=== PATIENT | male | born 1970 | race American Indian/Alaskan Native ===

== ENCOUNTER 2018-06-13 11:37 | Emergency (ER) | payer SELFPAY ==
[2018-06-13 11:50] VITALS: BP 119/66
[2018-06-13] MEDS ORDERED: DELTASONE PO ONE (12:20)
[2018-06-13] MEDS ORDERED: TYLENOL PO ONE (12:20)
--- NOTE | 2018-06-13 12:26 | Emergency Department Report ---
HPI - General Chief Complaint: Extremity Injury, Upper Time Seen by Provider: 06/13/18 12:03 - HPI HPI: She is a 48-year-old male who presents to ED with no prior medical conditions complaining of burning pain 3 days. 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 Patient denies any trauma or injuries. Patient states that he is unable to bend index finger due to pain. He denies fever/chills/nausea vomiting. ED Past Medical Hx - Past Medical History Previous Medical History?: No - Surgical History Past Surgical History?: No - Social History Smoking Status: Current Some Day Smoker Substance Use Type: None - Medications Home Medications: Home Medications Medication Instructions Recorded Confirmed Last Taken Type Clindamycin [Clindamycin CAP] 300 mg PO BID #10 cap 06/13/18 Unknown Rx Ibuprofen [Motrin] 800 mg PO Q8HR #30 tablet 06/13/18 Unknown Rx ED Review of Systems ROS: Stated complaint: RT HAND STIFF/SWELING Other details as noted in HPI Comment: All other systems reviewed and negative Physical Exam - Physical Exam Vital Signs: Vital Signs 06/13/18 11:47 Temperature 98.1 F Pulse Rate 93 H Respiratory 18 Rate Blood Pressure 119/66 O2 Sat by Pulse 98 Oximetry Physical Exam: GENERAL: Alert and oriented x3, no apparent distress, Normal Gait, atraumatic. HEAD: Head is normocephalic and a-traumatic. LUNGS: Symetrical with respiration, No wheezing, no rales or crackles, CTAB. HEART: S1, S2 present, regular rate and rhythm without murmur, no rubs, no gallops. Non tender to palpation EXTREMITIES/MUSCULOSKELETAL: No cyanosis, clubbing, rash, lesions or edema. Full ROM bilaterally. Radial Pulses 2+ bilaterally. UE 5+ strength bilaterally, tenderness to palpation of the metacarpal of the right index finger, is mildly cellulitis, no deformity, no lesions no scars NEUROLOGIC: The patient is cooperative with no focal neurologic deficits. SKIN: Warm and dry, No lesions, No ulceration or induration present. ED Course Vital Signs 06/13/18 11:47 Temperature 98.1 F Pulse Rate 93 H Respiratory 18 Rate Blood Pressure 119/66 O2 Sat by Pulse 98 Oximetry ED Medical Decision Making - Medical Decision Making 48-year-old male presents to ED with cellulitis of the right index ED course: Patient received prednisone and Tylenol in the ED Vital signs are normal patient is in no acute distress Discussed with patient follow-up with primary care physician. Discussed the patient and take medications as prescribed. Patient has no neurological deficit. Patient is alert and oriented 3 and understands all instructions given. Critical care attestation.: If time is entered above; I have spent that time in minutes in the direct care of this critically ill patient, excluding procedure time. ED Disposition Clinical Impression: Cellulitis, Joint pain in fingers of right hand Disposition: [id number] TO HOME OR SELFCARE Is pt being admited?: No Does the pt Need Aspirin: No Condition: Stable Instructions: Cellulitis (ED), Arthralgia (ED), Heat Pack Application (ED) Additional Instructions: Make sure to follow up with the primary care physician as discussed. Take all your medications as you've been prescribed. If you have any worsening symptoms or develop new symptoms please return to ED immediately. Prescriptions: Clindamycin [Clindamycin CAP] 300 mg PO BID #10 cap Ibuprofen [Motrin] 800 mg PO Q8HR #30 tablet Referrals: [facility] [Outside] - 3-5 Days [facility] [Outside] - 3-5 Days [facility] [place] [Outside] - 3-5 Days Forms: Work/School Release Form(ED) Time of Disposition: 12:33
== END 2018-06-13 13:56 | disposition home or self-care (01) ==
LOC: ED 11:37
DX: L03.011 Cellulitis of right finger (principal); F17.200 Nicotine dependence, unspecified, uncomplicated
CPT/HCPCS: 99282; J7512